=== PATIENT | female | born 1955 ===

== ENCOUNTER → 2017-09-18 11:22 | Outpatient (CLI) | payer OTHER | END | disposition home or self-care (01) | LOC: LAB 11:22 | DX: R50.9 Fever, unspecified (principal) ==

== ENCOUNTER → 2017-09-18 | Outpatient (CLI) | payer OTHER ==
[~2017-09-18] MED LIST: BACTROBAN OINT22 GM TP; LEVSINEX0.375 M1 PO; PHENERGAN25 MG PO; PREVACID15 MG PO; SEPTRA DS TABLE1 TAB PO
== END | disposition home or self-care (01) ==
LOC: PPHC 09:59
DX: B34.9 Viral infection, unspecified (principal)

== ENCOUNTER 2017-11-27 09:24 | Outpatient (CLI) | payer OTHER | END 2017-11-27 09:26 | disposition home or self-care (01) | LOC: LAB 09:24 | DX: R50.9 Fever, unspecified (principal); B34.9 Viral infection, unspecified; R05 Cough; J11.1 Influenza due to unidentified influenza virus with other respiratory manifestations ==

== ENCOUNTER → 2019-03-22 10:56 | Outpatient (CLI) | payer OTHER | END | disposition home or self-care (01) | LOC: LAB 10:56 | DX: J11.1 Influenza due to unidentified influenza virus with other respiratory manifestations (principal); J20.0 Acute bronchitis due to Mycoplasma pneumoniae ==